=== PATIENT | female | born 1975 | race Caucasian/White ===

== ENCOUNTER 2020-02-18 03:08 | Observation (INO) | payer BC, OTHER ==
[2020-02-18] MEDS ORDERED: GI Cocktail Oral Solution 30 ML PO ONE ×2 (03:23→04:36)
[2020-02-18] MEDS ORDERED: GI Cocktail Oral Solution 30 ML ONE (03:24)
--- NOTE | 2020-02-18 04:06 | EDM.PDOC ---
ED HPI GENERAL MEDICAL PROBLEM - General Chief Complaint: General Stated Complaint: chest pain Time Seen by Provider: 02/18/20 03:38 Source of Information: Reports: Patient History Limitations: Reports: No Limitations - History of Present Illness INITIAL COMMENTS - FREE TEXT/NARRATIVE: Patient comes to ER with complaint of substernal chest pain present for "three weeks". No accompanying nausea/emesis/diaphoresis/SOB Says she had around "4 drinks" this past evening to "kill pain" Hx of GERD. On Omeprazole. Has presented 4 times to the ER previously per records with same chest pain since February 2014. Workups have been unremarkable including a negative H.Pylorie. Chest pain has been felt to be secondary to patient's GERD, ETOH use, and smoking. She has been counselled to decrease/quit use but has not. No fevers/chills. No other changes. Middle Chest Pain Score (Numeric/FACES): 6 - Related Data Allergies Allergy/AdvReac Type Severity Reaction Status Date / Time No Known Drug Allergies Allergy Other Verified 12/27/17 00:07 Home Meds: Home Meds Omeprazole 20 mg PO DAILY #40 cap.cr 12/27/17 [Rx] Escitalopram [Lexapro] 40 mg PO DAILY 02/18/20 [History] busPIRone [Buspar] 15 mg PO BID 02/18/20 [History] Past Medical History - Past Health History Medical/Surgical History: Denies Medical/Surgical History Respiratory History: Reports: Other (See Below) Other Respiratory History: bronchitia, pneumonia in the past Gastrointestinal History: Reports: GERD MEDICAL PLANNER History: Reports: , Other (See Below) Other MEDICAL PLANNER History: preg x 2 Neurological History: Reports: Migraines Psychiatric History: Reports: Anxiety, Panic Attack - Infectious Disease History Infectious Disease History: Reports: Chicken Pox - Past Surgical History HEENT Surgical History: Reports: LASIK Respiratory Surgical History: Reports: None Neurological Surgical History: Reports: None Social & Family History - Family History Family Medical History: Noncontributory HEENT: Reports: None Cardiac: Reports: None Respiratory: Reports: None GI: Reports: None : Reports: None OBGYN: Reports: None Musculoskeletal: Reports: None Neurological: Reports: None Psychiatric: Reports: Depression (father with depression, Alive) Endocrine/Metabolic: Reports: Diabetes, type II (Father with DM--alive) Hematologic: Reports: None Immunologic: Reports: None Dermatologic: Reports: None Oncologic: Reports: None - Tobacco Use Smoking Status *Q: Current Every Day Smoker Years of Tobacco use: 30 Packs/Tins Daily: 0.5 Smoking Cessation Information Provided To Patient: Patient Refused Second Hand Smoke Exposure: No - Caffeine Use Caffeine Use: Reports: Coffee, Energy Drinks, Soda - Alcohol Use Alcohol Use in Last Twelve Months: Yes Alcohol Use Frequency: Binges (Hard to get straight story on ETOH use. Patient says she only drinks once a week and had 4 drinks tonight. ETOH has been factor in all previous chest pain presentations to ER over past 6 years. Suspect ETOH abuse given evasiveness of answers. Patient is intoxicated at this time) - Recreational Drug Use Recreational Drug Use: No - Living Situation & Occupation Living situation: Reports: with Significant Other Occupation: Employed ED ROS GENERAL - Review of Systems Review Of Systems: See Below Constitutional: Reports: No Symptoms. Denies: Weight Loss, Weight Gain HEENT: Reports: No Symptoms Respiratory: Reports: No Symptoms. Denies: Pleuritic Chest Pain Cardiovascular: Reports: Chest Pain. Denies: Dyspnea on Exertion, Lightheadedness, Orthopnea, Palpitations, PND, Syncope GI/Abdominal: Denies: Abdominal Pain, Black Stool, Bloody Stool, Constipation, Diarrhea, Decreased Appetite, Difficulty Swallowing, Distension, Hematochezia, Nausea, Vomiting : Reports: No Symptoms Musculoskeletal: Reports: No Symptoms Skin: Reports: No Symptoms Neurological: Reports: No Symptoms Psychiatric: Reports: Depression (chronic). Denies: Confusion, Hallucinations, Homicidal Ideation, Mood Lability, Suicidal Ideation Hematologic/Lymphatic: Reports: No Symptoms ED EXAM, GENERAL - Physical Exam Exam: See Below Exam Limited By: No Limitations General Appearance: Alert, No Apparent Distress, Other (smells strongly of ETOH, obviously intoxicated) Eye Exam: Bilateral Eye: Conjunctival Injection, EOMI Ears: Normal Canal, Hearing Grossly Normal Nose: No: Normal Inspection, Normal Mucosa, No Blood Throat/Mouth: Normal Lips, Normal Voice, No Airway Compromise Head: Atraumatic, Normocephalic Neck: Supple, Non-Tender, Full Range of Motion Respiratory/Chest: No Respiratory Distress, Lungs Clear, Normal Breath Sounds, No Accessory Muscle Use, Chest Non-Tender Cardiovascular: Normal Peripheral Pulses, Regular Rate, Rhythm, No Edema, No M urmur Peripheral Pulses: 2+: Radial (L), Radial (R) GI/Abdominal: Normal Bowel Sounds, Soft, Non-Tender, No Distention (Female) Exam: Deferred Rectal (Female) Exam: Deferred Back Exam: No: CVA Tenderness (L), CVA Tenderness (R), Muscle Spasm, Paraspinal Tenderness, Vertebral Tenderness Extremities: Normal Range of Motion, Non-Tender, No Pedal Edema, Normal Capillary Refill Neurological: Alert, Oriented, Normal Cognition, Normal Gait, No Motor/Sensory Deficits Psychiatric: Normal Affect, Normal Mood Skin Exam: Warm, Dry, Intact, Normal Color EKG INTERPRETATION EKG Date: 02/18/20 Time: 03:29 Rhythm: NSR Rate (Beats/Min): 63 [place]: Normal QRS: Normal ST-T: Normal QT: Normal Comparison: No Change Course - Vital Signs Last Recorded V/S: Last Vital Signs Temp 36.5 C 02/18/20 03:10 Pulse 64 02/18/20 03:10 Resp 16 02/18/20 03:10 BP 117/59 L 02/18/20 03:10 Pulse Ox 100 02/18/20 03:10 - Orders/Labs/Meds Orders: Active Orders 24 hr Category Date Time Status EKG Documentation Completion [RC] ASDIRECTED Care 02/18/20 03:38 Active Chest 2V [CR] Stat Exams 02/18/20 03:36 Ordered CK W CKMB [CHEM] Stat Lab 02/18/20 03:30 Received COMPREHENSIVE METABOLIC PN,CMP [CHEM] Stat Lab 02/18/20 03:30 Received D-DIMER QUANTITATIVE [COAG] Stat Lab 02/18/20 03:30 Received DRUG SCREEN, URINE [URCHEM] Stat Lab 02/18/20 03:38 Ordered ETOH [ETHANOL BLOOD MEDICAL] [CHEM] Stat Lab 02/18/20 03:38 Ordered INR,PT,PROTHROMBIN TIME [COAG] Stat Lab 02/18/20 03:30 Received LACTIC ACID [CHEM] Stat Lab 02/18/20 03:30 Received MAGNESIUM [CHEM] Stat Lab 02/18/20 03:30 Received PRO B-TYPE NATRIUR PEPT,BNPPRO [CHEM] Stat Lab 02/18/20 03:30 Received PTT,PARTIAL THROMBOPLSTIN TIME [COAG] Stat Lab 02/18/20 03:30 Received TROPONIN I [CHEM] Stat Lab 02/18/20 03:30 Received EKG 12 Lead [EK] Stat Ther 02/18/20 03:36 Ordered Labs: Laboratory Tests 02/18/20 Range/Units 03:30 WBC 7.1 (4.0-10.2) K/uL RBC 4.19 (3.77-5.09) M/uL Hgb 13.7 (11.7-15.5) g/dL Hct 39.7 (34.0-46.0) % MCV 94.7 (84.0-98.0) fL MCH 32.7 (28.2-33.3) pg MCHC 34.5 (31.7-36.0) g/dL RDW 13.1 (11.2-14.1) % Plt Count 229 (150-350) K/uL Neut % (Auto) 54.4 (45.0-80.0) % Lymph % (Auto) 35.0 (10.0-50.0) % [place] % (Auto) 6.7 (2.0-14.0) % Eos % (Auto) 3.5 (0.0-5.0) % Baso % (Auto) 0.4 (0.0-2.0) % Neut # (Auto) 3.84 (1.40-7.00) K/uL Lymph # (Auto) 2.47 (0.50-3.50) K/uL [place] # (Auto) 0.47 (0.00-1.00) K/uL Eos # (Auto) 0.25 (0.00-0.50) K/uL Baso # (Auto) 0.03 (0.00-0.20) K/uL Meds: Medications Discontinued Medications Generic Name Dose Route Start Last Admin Trade Name Freq PRN Reason Stop Dose Admin Al Hydroxide/Mg Hydroxide 30 ml 02/18/20 03:23 02/18/20 03:25 Gi Cocktail PO 02/18/20 03:24 30 ml ONETIME ONE Administration Al Hydroxide/Mg Hydroxide Confirm 02/18/20 03:24 02/18/20 03:29 Gi Cocktail Administered 02/18/20 03:25 Not Given Dose 30 ml .ROUTE .STK-MED ONE - Radiology Interpretation Free Text/Narrative:: Chest xray performed, no infiltrates/pneumo or other acute changes - Re-Assessments/Exams Free Text/Narrative Re-Assessment/Exam: 02/18/20 04:14 Chest pain protocol initiated. Given history of GERD/ETOH contribution strong suspicion of GI cause and GI cocktail given. This improved pain. Patient complained of worsening pain after xray performed, another GI cocktail ordered. She was told that no narcotics could be given due to her ETOH use. She responded by saying "she didn't drink that much"...then asked what her blood ETOH was...then defended her drinking saying it was the only thing she could think of to kill pain. Patient intoxicated and that is affecting interaction. She admits being told to quit ETOH/smoking to help with her GERD and says she tried but does not say for how long. She then rambled on to say she has been advised to have her GB removed but then adds she never sees a primary provider to have further GI/chest pain workups. Has not had RUQ pain. Drinking water and eating ease the chest pain. Pain does not radiate anywhere. Positional change makes no difference with pain. No specific worse time of day for pain. Pain does not move around. ETOH .24 DDimer/lactic acid/cbc normal. Chem pending. Plan is to admit observation to continue evaluation. Serial troponins/telemetry. Abdominal CT when patient taran up a bit more. Departure - Departure Time of Disposition: 04:21 Disposition: Refer to Observation Condition: Good Clinical Impression: Atypical chest pain, Gastroesophageal reflux disease, ETOH abuse - Discharge Information *PRESCRIPTION DRUG MONITORING PROGRAM REVIEWED*: Not Applicable *COPY OF PRESCRIPTION DRUG MONITORING REPORT IN PATIENT RYAN: Not Applicable Referrals: Jyoti Cisneros NP [Primary Care Provider] - Sepsis Event Note (ED) - Evaluation Sepsis Screening Result: No Definite Risk - Focused Exam Vital Signs: Vital Signs Temp Pulse Resp BP Pulse Ox 02/18/20 03:10 36.5 C 64 16 117/59 L 100 - Problem List & Annotations (1) Atypical chest pain SNOMED Code(s): 668841635 Code(s): R07.89 - OTHER CHEST PAIN Status: Acute Priority: High Current Visit: Yes Annotation/Comment:: Long history of intermittent issues with chest pain felt related to GERD/ETOH use. Currently reports 3 weeks of relatively constant substeral chest pain/nonradiating. Improves with food/water. Initial cardiac workup unremarkable. Normal EKG. GI cocktail improved pain. Will admit observation and continue telemetry/serial troponins. (2) Gastroesophageal reflux disease SNOMED Code(s): 748387115 Code(s): K21.9 - GASTRO-ESOPHAGEAL REFLUX DISEASE WITHOUT ESOPHAGITIS Status: Chronic Priority: High Current Visit: Yes Annotation/Comment:: Long history of GERD. On Omeprozole but has unmanaged diet. Suspect this is most likely etiology of current chest pain complaint. Will give Pepcid/Protonix. Planned abdominal CT in the morning once patient has a chance to become more sober. (3) ETOH abuse SNOMED Code(s): 46912332 Code(s): F10.10 - ALCOHOL ABUSE, UNCOMPLICATED Status: Chronic Priority: Medium Current Visit: Yes Annotation/Comment:: Suspect ETOH abuse based on review of patient's chart and previous presentations to ER for chest pain. She is very vague on ETOH use. Is 0.243 tonight. Observe for any signs of DTs (4) Tobacco abuse SNOMED Code(s): 349760643 Code(s): Z72.0 - TOBACCO USE Status: Chronic Priority: Low Current Visit: Yes (5) Obesity SNOMED Code(s): 751951955, 473574168 Code(s): E66.9 - OBESITY, UNSPECIFIED Status: Acute Priority: Low Current Visit: Yes Annotation/Comment:: Establish primary care and follow up. Dietary changes recommended to patient including cessation of ETOH. (6) Anxiety SNOMED Code(s): 31899372 Code(s): F41.9 - ANXIETY DISORDER, UNSPECIFIED Status: Chronic Priority: Low Current Visit: Yes Annotation/Comment:: On Buspar and Lexapro. - Problem List Review Problem List Initiated/Reviewed/Updated: Yes - My Orders Last 24 Hours: My Active Orders 02/18/20 03:30 CK W CKMB [CHEM] Stat COMPREHENSIVE METABOLIC PN,CMP [CHEM] Stat D-DIMER QUANTITATIVE [COAG] Stat INR,PT,PROTHROMBIN TIME [COAG] Stat LACTIC ACID [CHEM] Stat MAGNESIUM [CHEM] Stat PRO B-TYPE NATRIUR PEPT,BNPPRO [CHEM] Stat PTT,PARTIAL THROMBOPLSTIN TIME [COAG] Stat TROPONIN I [CHEM] Stat 02/18/20 03:36 Chest 2V [CR] Stat EKG 12 Lead [EK] Stat 02/18/20 03:38 EKG Documentation Completion [RC] ASDIRECTED DRUG SCREEN, URINE [URCHEM] Stat ETOH [ETHANOL BLOOD MEDICAL] [CHEM] Stat - Assessment/Plan Admission H&P: Please use this note as an admission H&P Last 24 Hours: My Active Orders 02/18/20 03:30 CK W CKMB [CHEM] Stat COMPREHENSIVE METABOLIC PN,CMP [CHEM] Stat D-DIMER QUANTITATIVE [COAG] Stat INR,PT,PROTHROMBIN TIME [COAG] Stat LACTIC ACID [CHEM] Stat MAGNESIUM [CHEM] Stat PRO B-TYPE NATRIUR PEPT,BNPPRO [CHEM] Stat PTT,PARTIAL THROMBOPLSTIN TIME [COAG] Stat TROPONIN I [CHEM] Stat 02/18/20 03:36 Chest 2V [CR] Stat EKG 12 Lead [EK] Stat 02/18/20 03:38 EKG Documentation Completion [RC] ASDIRECTED DRUG SCREEN, URINE [URCHEM] Stat ETOH [ETHANOL BLOOD MEDICAL] [CHEM] Stat Assessment:: as above. Stable and appropriate for general supervision Plan: as above. Anticipate discharge tomorrow or Wednesday depending on clinical course.
[2020-02-18 04:10] LABS: BARBITURATE SCREEN,URINE NEGATIVE (NEGATIVE); BENZODIAZEPINES SCREEN,URINE NEGATIVE (NEGATIVE); EDDP,URINE SCREEN NEGATIVE (NEGATIVE); TCA SCREEN,URINE NEGATIVE (NEGATIVE); THC SCREEN,URINE 50 NG/ML NEGATIVE (NEGATIVE)
[2020-02-18 04:13] LABS: PTT,PARTIAL THROMBOPLSTIN TIME 28.3 SEC (24.5-32.8)
[2020-02-18 04:22] LABS: CHLORIDE,CL 108 mmol/L (98-107); SODIUM,NA 143 mmol/L (136-145)
[2020-02-18] MEDS ORDERED: Ondansetron 4 MG/2 ML SDV IVPUSH PRN (04:32)
[2020-02-18] MEDS ORDERED: Acetaminophen 325 MG Tab PO PRN (04:32)
[2020-02-18] MEDS ORDERED: LORazepam 2 MG/ML SDV IV ONE (04:32)
[2020-02-18] MEDS ORDERED: Sodium Chloride 0.9% 1,000 ML IV ONE (04:37)
[2020-02-18] MEDS ORDERED: Nicotine 21 MG/24 Hr Patch TRDERM SCH (04:45)
[2020-02-18] MEDS ORDERED: Famotidine 20 MG/2 ML SDV IVPUSH SCH (04:45)
[2020-02-18] MEDS: Pantoprazole 40 MG Vial IVPUSH SCH ×2 (05:22→17:09)
[2020-02-18] MEDS: Ketorolac 30 MG/ML SDV IVPUSH SCH ×3 (05:30→17:09)
[2020-02-18] MEDS: Sodium Chloride 0.9% 10 ML Syringe FLUSH PRN (05:51)
[2020-02-18] MEDS ORDERED: NS + KCl 20mEq/L 1,000 ML IV SCH (06:00)
[2020-02-18] MEDS ORDERED: Potassium Chloride 20 MEQ Tab.ER PO ONE ×2 (11:48→16:00)
[2020-02-18] MEDS ORDERED: NS + KCl 20mEq/L 1,000 ML IV ONE (12:46)
[2020-02-18] MEDS: Escitalopram 20 MG Tab PO SCH (17:08)
[2020-02-18] MEDS: Sucralfate 1 GM Tab PO SCH ×2 (17:08→20:29)
[2020-02-18] MEDS: Famotidine 20 MG/2 ML SDV IVPUSH SCH (17:09)
[2020-02-19] MEDS: Ketorolac 30 MG/ML SDV IVPUSH SCH ×3 (00:01→12:43)
[2020-02-19] MEDS: Sodium Chloride 0.9% 10 ML Syringe FLUSH PRN ×3 (00:04→07:29)
[2020-02-19] MEDS: Pantoprazole 40 MG Vial IVPUSH SCH (05:50)
[2020-02-19] MEDS: Famotidine 20 MG/2 ML SDV IVPUSH SCH (07:28)
[2020-02-19] MEDS: Escitalopram 20 MG Tab PO SCH (07:28)
[2020-02-19] MEDS: Sucralfate 1 GM Tab PO SCH ×2 (07:28→12:15)
[2020-02-19 07:49] VITALS: BP 118/62; PULSE 58
[2020-02-19] MEDS ORDERED: Nicotine 21 MG/24 Hr Patch TRDERM SCH (08:00)
[2020-02-19 08:04] LABS: CHLORIDE,CL 107 mmol/L (98-107); SODIUM,NA 138 mmol/L (136-145)
--- NOTE | 2020-02-19 12:20 | PCM.DCSUM1 ---
Discharge Summary - Hospital Course Brief History: Patient admitted for further evaluation and treatment of substernal chest pain. Diagnosis: Stroke: No - Discharge Data Discharge Date: 02/19/20 Discharge Disposition: Home, Self-Care 01 Condition: Good - Referral to Home Health Primary Care Physician: Jyoti Cisneros, BLANKET WASHER - Discharge Diagnosis/Problem(s) (1) Atypical chest pain SNOMED Code(s): 083189762 ICD Code: R07.89 - OTHER CHEST PAIN Status: Acute Priority: High Current Visit: Yes Problem Details: Long history of intermittent issues with chest pain felt related to GERD/ETOH use. Currently reports 3 weeks of relatively constant substeral chest pain/nonradiating. Improves with food/water. Initial cardiac workup unremarkable. Normal EKG. GI cocktail improved pain. Admitted observation. Serial troponin checks negative. Pain slowly improved throughout stay while patient received IV Pepcid/Protonix. (2) Gastroesophageal reflux disease SNOMED Code(s): 830607573 ICD Code: K21.9 - GASTRO-ESOPHAGEAL REFLUX DISEASE WITHOUT ESOPHAGITIS Status: Chronic Priority: High Current Visit: Yes Problem Details: Long history of GERD. On Omeprozole but has unmanaged diet. ETOH appears to con tribute to exacerbations. Suspect this is most likely etiology of current chest pain complaint. IV Pepcid/Protonix given during Obs stay. Discussed patient with [facility] GI/Anai BLANKET WASHER for . She recommended having patient go to BID Omeprazole and nightly Pepcid while waiting to be scheduled for EGD. Anai BLANKET WASHER will have [facility] scheduling contact patient to schedule the EGD hopefully this week and have office follow up with GI shortly thereafter to review results. (3) ETOH abuse SNOMED Code(s): 03564366 ICD Code: F10.10 - ALCOHOL ABUSE, UNCOMPLICATED Status: Chronic Priority: Medium Current Visit: Yes Problem Details: Suspect ETOH abuse (at least intermittent binge drinking) based on review of patient's chart and previous presentations to ER for chest pain. She is very vague on ETOH use. Is 0.243 tonight. No evidence of DTs noted during stay. (4) Tobacco abuse SNOMED Code(s): 898022956 ICD Code: Z72.0 - TOBACCO USE Status: Chronic Priority: Low Current Visit: Yes Problem Details: Patient advised to stop tobacco use (5) Obesity SNOMED Code(s): 665890730, 841855773 ICD Code: E66.9 - OBESITY, UNSPECIFIED Status: Acute Priority: Low Current Visit: Yes Problem Details: Establish primary care and follow up. Dietary changes recommended to patient including cessation of ETOH. (6) Anxiety SNOMED Code(s): 08722709 ICD Code: F41.9 - ANXIETY DISORDER, UNSPECIFIED Status: Chronic Priority: Low Current Visit: Yes Problem Details: On Buspar and Lexapro. - Patient Summary/Data Hospital Course: Patient received IV Protonix and Pepcid. Serial troponins negative. Substernal burning improved with GI cocktails given in ER. Over course of stay it continued to improve while receiving the IV meds/Toradol. Appetite improved. OK to discharge today. Has plan in place as noted above to have EGD scheduled with [facility] and follow up after EGD for further planning. Recommended med changes as above per GI in meantime. Long time spent counseling patient yesterday and today regarding strategies to improve reflux/gastritis/esophagitis as this is felt to be the most likely cause of her symptoms. Dietary changes/avoidance of ETOH and soda as well as processed foods and junk food encouraged. Elevation of head of bed also recommended in addition to smoking cessation. Patient receptive during visit. Agrees with follow up plan/GI visit. Has small amount of burning discomfort remaining at time of discharge, but feels much improved overall. Patient unable to give stool specimen for HPylorie testing - Patient Instructions Diet: Anti-Inflammatory (Avoid alcohol/soda/processed food/wheat and flour containing food/dairy for now) Activity: As Tolerated Driving: May Drive Today Showering/Bathing: May Shower Other/Special Instructions: [facility] should be calling you to schedule an EGD. Hopefully that can be performed this week. Make certain you also get scheduled for a follow up office appointment within a decent time frame to discuss results. We spoke to their nurse practitioner, today about this and this was her recommended plan. We will also have you increase the Omeprazole to two tabs twice daily for now. supervisor water softener service over the counter Pepcid and take 1 tablet before bed for now also. Carafate helps coat things and can help pain. You can take that around mealtimes and before bed. Consider raising head of bed/no eating 3 hours prior to bed/and other diet and lifestyle changes we discussed during your stay that may also be very helpful. Call us if you have questions or concerns. Follow up otherwise as needed if you have additional problems. Also discuss getting HPylorie testing as you were not able to give stool sample during stay. - Discharge Plan *PRESCRIPTION DRUG MONITORING PROGRAM REVIEWED*: Not Applicable *COPY OF PRESCRIPTION DRUG MONITORING REPORT IN PATIENT RYAN: Not Applicable Prescriptions/Med Rec: Sucralfate [Carafate] 1 gm PO TIDAC PRN #120 cup PRN Reason: Heartburn Omeprazole 40 mg PO BID #120 capsule. Home Medications: Home Meds Escitalopram [Lexapro] 40 mg PO DAILY 02/18/20 [History] busPIRone [Buspar] 15 mg PO BID 02/18/20 [History] Omeprazole 40 mg PO BID #120 capsule. 02/19/20 [Rx] Sucralfate [Carafate] 1 gm PO TIDAC PRN #120 cup 02/19/20 [Rx] Patient Handouts: Food Choices for Gastroesophageal Reflux Disease, Adult, [id number], Health Risks of Smoking, Nonspecific Chest Pain, Adult, [id number], Gastroesophageal Reflux Disease, Adult, [id number] Forms: ED Department Discharge Referrals: Jyoti Cisneros BLANKET WASHER [Primary Care Provider] - - Discharge Summary/Plan Comment DC Time >30 min.: No - General Info Date of Service: 02/19/20 Admission Dx/Problem (Free Text: Chest pain/substernal burning, ETOH intoxication Subjective Update: Patient feels significantly better. Small amount of persistent epigastric burning that does not change with eating/drinking/positional changes. Functional Status: Reports: Pain Controlled, Tolerating Diet, Ambulating, Urinating. Denies: New Symptoms Numeric/FACES Score: 1 - Review of Systems General: Reports: Appetite (mildly decreased). Denies: Fever, Weakness, Fatigue, Malaise, Chills, Night Sweats HEENT: Reports: No Symptoms Pulmonary: Reports: No Symptoms Cardiovascular: Reports: Other (substernal burning sensation). Denies: Palpitations, Dyspnea on Exertion, Orthopnea, Edema, Lightheadedness Gastrointestinal: Reports: No Symptoms. Denies: Diarrhea, Difficulty Swallowing, Melena, Nausea, Vomiting Genitourinary: Reports: No Symptoms Musculoskeletal: Reports: No Symptoms Skin: Reports: No Symptoms Neurological: Reports: No Symptoms Psychiatric: Reports: No Symptoms - Patient Data Vitals - Most Recent: Last Vital Signs Temp 36.6 C 02/19/20 07:45 Pulse 58 L 02/19/20 07:45 Resp 16 02/19/20 07:45 BP 118/62 02/19/20 07:45 Pulse Ox 99 02/19/20 07:45 Weight - Most Recent: 73.89 kg Lab Results - Last 24 hrs: Laboratory Results - last 24 hr 02/18/20 02/18/20 02/19/20 Range/Units 15:32 15:32 07:15 WBC 7.3 5.2 (4.0-10.2) K/uL RBC 3.94 3.92 (3.77-5.09) M/uL Hgb 12.9 12.8 (11.7-15.5) g/dL Hct 37.6 37.6 (34.0-46.0) % MCV 95.4 95.9 (84.0-98.0) fL MCH 32.7 32.7 (28.2-33.3) pg MCHC 34.3 34.0 (31.7-36.0) g/dL RDW 13.1 13.2 (11.2-14.1) % Plt Count 206 195 (150-350) K/uL Neut % (Auto) 70.5 57.4 (45.0-80.0) % Lymph % (Auto) 20.7 30.2 (10.0-50.0) % [place] % (Auto) 6.1 8.5 (2.0-14.0) % Eos % (Auto) 2.3 3.5 (0.0-5.0) % Baso % (Auto) 0.4 0.4 (0.0-2.0) % Neut # (Auto) 5.11 2.97 (1.40-7.00) K/uL Lymph # (Auto) 1.50 1.56 (0.50-3.50) K/uL [place] # (Auto) 0.44 0.44 (0.00-1.00) K/uL Eos # (Auto) 0.17 0.18 (0.00-0.50) K/uL Baso # (Auto) 0.03 0.02 (0.00-0.20) K/uL Sodium (136-145) mmol/L Potassium (3.5-5.1) mmol/L Chloride (98-107) mmol/L Carbon Dioxide (21.0-32.0) mmol/L BUN (7-18) mg/dL Creatinine (0.51-1.17) mg/dL Est Cr Clr Drug Dosing mL/min Estimated GFR (MDRD) mL/min Glucose (74-106) mg/dL Calcium (8.5-10.1) mg/dL Troponin I 0.000 (0.000-0.056) ng/mL Amylase (25-115) U/L Lipase (73-393) U/L 02/19/20 02/19/20 Range/Units 07:15 07:15 WBC (4.0-10.2) K/uL RBC (3.77-5.09) M/uL Hgb (11.7-15.5) g/dL Hct (34.0-46.0) % MCV (84.0-98.0) fL MCH (28.2-33.3) pg MCHC (31.7-36.0) g/dL RDW (11.2-14.1) % Plt Count (150-350) K/uL Neut % (Auto) (45.0-80.0) % Lymph % (Auto) (10.0-50.0) % [place] % (Auto) (2.0-14.0) % Eos % (Auto) (0.0-5.0) % Baso % (Auto) (0.0-2.0) % Neut # (Auto) (1.40-7.00) K/uL Lymph # (Auto) (0.50-3.50) K/uL [place] # (Auto) (0.00-1.00) K/uL Eos # (Auto) (0.00-0.50) K/uL Baso # (Auto) (0.00-0.20) K/uL Sodium 138 (136-145) mmol/L Potassium 3.9 (3.5-5.1) mmol/L Chloride 107 (98-107) mmol/L Carbon Dioxide 21.6 (21.0-32.0) mmol/L BUN 13 (7-18) mg/dL Creatinine 0.52 (0.51-1.17) mg/dL Est Cr Clr Drug Dosing 133.91 mL/min Estimated GFR (MDRD) > 60 mL/min Glucose 89 (74-106) mg/dL Calcium 8.2 L (8.5-10.1) mg/dL Troponin I (0.000-0.056) ng/mL Amylase 37 (25-115) U/L Lipase 144 (73-393) U/L Med Orders - Current: Current Medications Acetaminophen (Tylenol) 650 mg PO Q4H PRN PRN Reason: Pain (Mild 1-3)/fever Last Admin: 02/18/20 09:30 Dose: 650 mg Documented by: Escitalopram Oxalate (Lexapro) 20 mg PO DAILY [facility] Last Admin: 02/19/20 07:28 Dose: 20 mg Documented by: Famotidine (Pepcid) 20 mg IVPUSH BID [facility] Last Admin: 02/19/20 07:28 Dose: 20 mg Documented by: Ketorolac Tromethamine (Toradol) 30 mg IVPUSH Q6H [facility] Stop: 02/23/20 05:01 Last Admin: 02/19/20 05:50 Dose: 30 mg Documented by: Nicotine (Habitrol) 21 mg TRDERM DAILY [facility] Last Admin: 02/19/20 07:28 Dose: 21 mg Documented by: Ondansetron HCl (Zofran) 4 mg IVPUSH Q6H PRN PRN Reason: Nausea/Vomiting Last Admin: 02/18/20 05:25 Dose: 4 mg Documented by: Pantoprazole Sodium (Protonix Iv) 40 mg IVPUSH Q12H [facility] Last Admin: 02/19/20 05:50 Dose: 40 mg Documented by: Sodium Chloride (Saline Flush) 10 ml FLUSH ASDIRECTED PRN PRN Reason: Keep Vein Open Last Admin: 02/19/20 07:29 Dose: 10 ml Documented by: Sucralfate (Carafate) 1 gm PO QIDACANDBED [facility] Last Admin: 02/19/20 07:28 Dose: 1 gm Documented by: Discontinued Medications Al Hydroxide/Mg Hydroxide (Gi Cocktail) 30 ml PO ONETIME ONE Stop: 02/18/20 03:24 Last Admin: 02/18/20 03:25 Dose: 30 ml Documented by: Al Hydroxide/Mg Hydroxide (Gi Cocktail) Confirm Administered Dose 30 ml .ROUTE .STK-MED ONE Stop: 02/18/20 03:25 Last Admin: 02/18/20 03:29 Dose: Not Given Documented by: Al Hydroxide/Mg Hydroxide (Gi Cocktail) 30 ml PO ONETIME ONE Stop: 02/18/20 04:37 Last Admin: 02/18/20 05:22 Dose: 30 ml Documented by: Famotidine (Pepcid) 20 mg IVPUSH BID [facility] Last Admin: 02/18/20 05:32 Dose: 20 mg Documented by: Sodium Chloride (Normal Saline) 1,000 mls @ 999 mls/hr IV .BOLUS ONE Stop: 02/18/20 05:37 Last Admin: 02/18/20 05:21 Dose: 999 mls/hr Documented by: Potassium Chloride/Sodium Chloride (Normal Saline With 20 Meq Kcl) 1,000 mls @ 150 mls/hr IV ASDIRECTED [facility] Last Admin: 02/18/20 06:30 Dose: 150 mls/hr Documented by: Potassium Chloride/Sodium Chloride (Normal Saline With 20 Meq Kcl) 1,000 mls @ 150 mls/hr IV ONETIME ONE Stop: 02/18/20 19:24 Last Admin: 02/18/20 12:57 Dose: Not Given Documented by: Lorazepam (Ativan) 1 mg IV ONETIME ONE Stop: 02/18/20 04:33 Last Admin: 02/18/20 05:34 Dose: 1 mg Documented by: Nicotine (Habitrol) 21 mg TRDERM DAILY [facility] Last Admin: 02/18/20 05:19 Dose: 21 mg Documented by: Potassium Chloride (Klor-Con M20) 20 meq PO ONETIME ONE Stop: 02/18/20 11:49 Last Admin: 02/18/20 12:02 Dose: 20 meq Documented by: Potassium Chloride (Klor-Con M20) 20 meq PO ONETIME ONE Stop: 02/18/20 16:01 Last Admin: 02/18/20 17:08 Dose: 20 meq Documented by: - Exam General: Reports: Alert, Oriented, Cooperative, No Acute Distress HEENT: Reports: Pupils Equal, Pupils Reactive, EOMI, Mucous Membr. Moist/[place] Neck: Reports: Supple Lungs: Reports: Clear to Auscultation, Normal Respiratory Effort Cardiovascular: Reports: Regular Rate, Regular Rhythm GI/Abdominal Exam: Normal Bowel Sounds, Soft, Non-Tender, No Distention (Female) Exam: Deferred Rectal (Female) Exam: Deferred Back Exam: Denies: Muscle Spasm Extremities: Normal Range of Motion, Normal Capillary Refill Skin: Reports: Warm, Dry Neurological: Reports: No New Focal Deficit Psy/Mental Status: Reports: Alert, Normal Affect, Normal Mood
== END 2020-02-19 12:50 | disposition home or self-care (01) ==
LOC: LL.ED 03:08 → UNDOADMOB 04:08 → LL.MS 04:08
PROVIDERS: ADMIT Emergency Medicine; ATTEND Emergency Medicine
DX: R07.89 Other chest pain (principal); K21.9 Gastro-esophageal reflux disease without esophagitis; F41.9 Anxiety disorder, unspecified; F17.210 Nicotine dependence, cigarettes, uncomplicated; F10.10 Alcohol abuse, uncomplicated; E66.9 Obesity, unspecified; Z68.21 Body mass index [BMI] 21.0-21.9, adult; Z79.899 Other long term (current) drug therapy
CPT/HCPCS: 36415; 71046; 74176; 80048; 80053; 80305-QW; 80307; 82150; 82550; 82553; 83605; 83690; 83735; 83880; 84484; 85025; 85379; 85610; 85730; 93005; 96361; 96374; 96375; 96376; 99285-25; A9270-GY; C9113; G0378; J1885; J2060; J2405; J3480; J3490; J7030